=== PATIENT | male | born 1985 | race Two or more races ===

== ENCOUNTER 2017-08-01 14:31 | Emergency (ER) | payer SELFPAY ==
[~2017-08-01] VITALS: Ht 162.6 cm; Wt 81.6 kg
[2017-08-01 14:32] VITALS: BP 119/74
[2017-08-01 15:40] VITALS: BP 119/74
--- NOTE | 2017-08-01 16:06 | Emergency Room Report ---
History of Present Illness General Chief Complaint: Alcohol Intoxication Source: Patient Present Illness HPI The patient is a 31-year-old male brought in by EMS for suppose it alcohol intoxication as well as complaints of right leg pain. He admits to consuming vodka today. He does not provide useful information at this time but denies falling. He denies any other symptoms Allergies: Coded Allergies: No Known Allergies (Unverified , 08/01/17) Patient History Past Medical History: see triage record Pertinent Family History: none Reviewed Nursing Documentation: PMH: Agreed; PSxH: Agreed Nursing Documentation-PMH Past Medical History: No Stated History Review of Systems All Other Systems: negative except mentioned in HPI Physical Exam Vital Signs Date Time Temp Pulse Resp B/P (MAP) Pulse Ox O2 Delivery O2 Flow Rate FiO2 08/01/17 14:24 97.8 92 20 119/74 98 97.9 Sp02 EP Interpretation: reviewed, normal General Appearance: no apparent distress, alert, GCS 15, non-toxic, lethargic Head: normocephalic, atraumatic Eyes: bilateral eye normal inspection, bilateral eye PERRL Respiratory: chest non-tender, lungs clear, normal breath sounds, speaking full sentences Cardiovascular #1: regular rate, rhythm, no edema Musculoskeletal: normal inspection, back normal, gait/station normal, normal range of motion, non-tender, no calf tenderness Neurologic: alert, responsive, sensory intact Skin: normal color, no rash, warm/dry, well hydrated Medical Decision Making PA Attestation Dr. Ulloa is my supervising physician. Patient management was discussed with my supervising physician Diagnostic Impression: Primary Impression: Acute alcoholic intoxication Qualified Codes: F10.929 - Alcohol use, unspecified with intoxication, unspecified ER Course The patient is a 31-year-old male brought in by EMS for suppose it alcohol intoxication as well as complaints of right leg pain. DDx considered but not limited to: acute alcohol intoxication, hepatic encephalopathy, drug overdose, hypoglycemia, psychosis Physical exam: Vitals are within normal limits. No apparent distress. Patient is lethargic. Head is normocephalic atraumatic. Pupils are equally round and reactive to light The patient is arousable by touch or name. Lungs are clear to auscultation bilaterally. R leg unremarkable. Full AROM intact. Non tender. No deformity. No abnormal tenderness. Abdomen is soft. Otherwise exam is unremarkable The patient is given time to rest in the emergency department. Upon reevaluation, patient has eloped. Last Vital Signs Date Time Temp Pulse Resp B/P (MAP) Pulse Ox O2 Delivery O2 Flow Rate FiO2 08/01/17 14:32 97.9 20 119/74 98 97.9 08/01/17 14:24 92 Status: improved Disposition: ELOPED Condition: Stable Patient Instructions: Alcohol Intoxication Additional Instructions: My findings were discussed with the patient. Patient was counseled to seek help for alcohol abuse. Patient is stable for discharge, is alert and oriented, and can ambulate without difficulty. Patient is asked to return to ED if he experiences chest pain, abdominal pain, dizziness, falls down, or for any reason. BUD KAUFMAN Aug 01, 2017 16:06
== END 2017-08-01 15:40 | disposition left against medical advice (07) ==
LOC: EDBD 14:31 → EMR 15:01
DX: F10.129 Alcohol abuse with intoxication, unspecified (principal); M79.604 Pain in right leg
CPT/HCPCS: 99283